=== PATIENT | male | born 1940 | race Caucasian/White ===

== ENCOUNTER → 2018-10-06 | Outpatient (CLI) | payer MEDICARE, BC | END | disposition home or self-care (01) | LOC: ROC 09-08 10:33 | PROVIDERS: ATTEND Radiology Radiation Oncology | DX: D35.2 Benign neoplasm of pituitary gland (principal) | CPT/HCPCS: G0463 ==

== ENCOUNTER 2018-10-16 11:26 | Outpatient (CLI) | payer MEDICARE, BC ==
[2018-10-16] MEDS ORDERED: GADOBUTROL 10 MMOL/10 ML PFS ONE (13:19)
[2018-10-16] MEDS ORDERED: ONDANSETRON ODT 4 MG ONE (13:50)
== END 2018-10-16 23:59 | disposition home or self-care (01) ==
LOC: CFH 11:26
PROVIDERS: ATTEND Radiology Radiation Oncology
DX: D35.2 Benign neoplasm of pituitary gland (principal)
CPT/HCPCS: 70553; A9585; Q0162

== ENCOUNTER 2019-05-07 07:13 | Outpatient (CLI) | payer MEDICARE, BC | END 2019-05-07 23:59 | disposition home or self-care (01) | LOC: ROC 07:13 | PROVIDERS: ATTEND Radiology Radiation Oncology | DX: D35.2 Benign neoplasm of pituitary gland (principal) | CPT/HCPCS: G0463 ==

== ENCOUNTER 2020-04-07 07:24 | Outpatient (CLI) | payer MEDICARE, BC | END 2020-04-07 23:59 | disposition home or self-care (01) | LOC: ROC 07:24 | PROVIDERS: ATTEND Radiology Radiation Oncology | DX: D35.2 Benign neoplasm of pituitary gland (principal) | CPT/HCPCS: G0463 ==